=== PATIENT | male | born 1985 | race Caucasian/White ===

== ENCOUNTER → 2017-03-26 | Outpatient (CLI) | payer OTHER ==
--- NOTE | 2017-03-26 17:04 | US ---
EXAMINATION TYPE: US renals and bladder DATE OF EXAM: 03/26/2017 COMPARISON: NONE CLINICAL HISTORY: R31.0 Gross Hematuria. Occasional hematuria x 1 week EXAM MEASUREMENTS: Right Kidney: 9.7 x 4.9 x 4.8 cm Left Kidney: 10.5 x 4.7 x 4.7 cm Right Kidney: no hydro or masses seen Left Kidney: no hydro or masses seen Bladder: wnl Bilateral Jets seen: no There is no evidence for hydronephrosis at this point in time. No nephrolithiasis is seen. No la s are identified. The urinary bladder is anechoic. Bilateral ureteral jets are seen. IMPRESSION: Negative retroperitoneal sonogram exam. No renal mass or obstruction.
== END | disposition home or self-care (01) ==
LOC: RADUSMAIN 16:00
PROVIDERS: ATTEND Internal Medicine
DX: R31.0 Gross hematuria (principal)
CPT/HCPCS: 76770

== ENCOUNTER 2018-04-16 19:52 | Emergency (ER) | payer OTHER ==
[2018-04-16] MEDS ORDERED: SODIUM CHLORIDE 0.9% 500 ML 500 ML IV STA (20:58)
--- NOTE | 2018-04-16 21:28 | ED ---
Chest Pain HPI - General Chief Complaint: Chest Pain Stated Complaint: Chest pain Time Seen by Provider: 04/16/18 20:11 Source: patient Mode of arrival: ambulatory Limitations: no limitations - History of Present Illness Initial Comments: 32-year-old male patient presents to the emergency department today for evaluation of intermittent chest pain and shortness of breath for the last couple of weeks. Patient states that he'll have a vague discomfort to the substernal chest region. Patient states that these episodes come out of nowhere. States that with them he does have some shortness of breath. Denies any nausea or sweats. Denies any dizziness or weakness. Patient states he is also been having a burning sensation to the left lateral chest that is also intermittent. Patient denies any increase in pain with movement or pressure over the area. He denies any current shortness breath, nausea, vomiting. Denies any palpitations or racing heart. Denies any use of street drugs. States that he is a social drinker and drinks at least once a week. Patient states he did see his primary care physician yesterday was diagnosed with acid reflux and started on Prilosec. Patient denies any recent rash, fever, chills, abdominal pain, diarrhea, constipation, back pain, numbness, tingling, dizziness , weakness, hematuria, dysuria, urinary urgency, urinary frequency, headache, visual changes, or any other complaints. - Related Data Home Medications Medication Instructions Recorded Confirmed Omeprazole [PriLOSEC] 20 mg PO DAILY 04/16/18 04/16/18 Allergies Allergy/AdvReac Type Severity Reaction Status Date / Time No Known Allergies Allergy Verified 04/16/18 20:18 Review of Systems ROS Statement: Those systems with pertinent positive or pertinent negative responses have been documented in the HPI. ROS Other: All systems not noted in ROS Statement are negative. EKG Findings - EKG Comments: EKG Findings:: EKG obtained at 2125 shows normal sinus rhythm with a ventricular rate of 75, WV interval 134, QRS duration 86, QT 368, QTC 410. No evidence of ST elevation or depression. Past Medical History Past Medical History: GERD/Reflux History of Any Multi-Drug Resistant Organisms: None Reported Additional Past Surgical History / Comment(s): LEFT KNEE SURGERY Past Psychological History: No Psychological Hx Reported Smoking Status: Never smoker Past Alcohol Use History: Occasional Past Drug Use History: None Reported General Exam Limitations: no limitations General appearance: alert, in no apparent distress, other (This is a well- developed, well-nourished adult male patient in no acute distress. Vital signs upon presentation are temperature 98.6F, pulse 77, respirations 18, blood pressure 134/79, pulse ox 99% on room air.) Eye exam: Present: normal appearance, PERRL, EOMI. Absent: scleral icterus, conjunctival injection, periorbital swelling ENT exam: Present: normal exam, normal oropharynx, mucous membranes moist Respiratory exam: Present: normal lung sounds bilaterally. Absent: respiratory distress, wheezes, rales, rhonchi, stridor Cardiovascular Exam: Present: regular rate, normal rhythm, normal heart sounds. Absent: systolic murmur, diastolic murmur, rubs, gallop, clicks GI/Abdominal exam: Present: soft, normal bowel sounds. Absent: distended, tenderness, guarding, rebound, rigid Neurological exam: Present: alert, oriented X3, CN II-XII intact Psychiatric exam: Present: normal affect, normal mood Skin exam: Present: warm, dry, intact, normal color. Absent: rash Course Vital Signs 04/16/18 19:58 Temperature 98.6 F Pulse Rate 77 Respiratory 18 Rate Blood Pressure 134/79 O2 Sat by Pulse 99 Oximetry Chest Pain [facility]:Two-view x-ray of the chest is obtained. Report was reviewed in its entirety. Impression by Dr. Beckford shows no acute cardio pulmonary process. MDM: 32-year-old male patient presents to the emergency department today for evaluation of intermittent chest pain and shortness of breath 2 weeks. Patient is also reporting left lateral chest burning. Pain is not reproducible with palpation. He is currently pain-free and symptom-free. Labs reviewed and were unremarkable. EKG showed normal sinus rhythm with no ectopy, ST elevation , ST depression. Chest x-ray showed no acute cardio pulmonary process. Did discuss findings and results with the patient. We did discuss outpatient follow -up for possible echocardiogram or stress testing. We also did discuss anxiety and acid reflux as a cause for his symptoms. He is currently taking Prilosec by his primary care physician yesterday, he is urged to continue this medication. He is instructed to follow-up with his primary care physician for recheck as soon as possible. Return parameters were discussed in detail. He verbalizes understanding and agrees with this plan. Disposition Clinical Impression: Chest pain Disposition: HOME SELF-CARE Condition: Good Instructions (If sedation given, give patient instructions): Chest Pain (ED) Additional Instructions: Follow up with your primary care physician for recheck in 1-2 days. Discuss possible echocardiogram or stress testing for further heart evaluation. Discuss possible use of medication for anxiety. Return to the emergency department for any new, worsening, or concerning symptoms. Is patient prescribed a controlled substance at d/c from ED?: No Referrals: Aurelia Rubin MD [Primary Care Provider] - 1-2 days Time of Disposition: 22:34
[2018-04-16 21:34] LABS: Basophils # (A) 0.1 k/uL (0-0.2); Basophils % (A) 1 %; Eosinophils # (A) 0.3 k/uL (0-0.7); Eosinophils % (A) 3 %; HCT 44.4 % (39.0-53.0); HGB 14.3 gm/dL (13.0-17.5); Lymphocytes # (A) 3.1 k/uL (1.0-4.8); Lymphocytes % (A) 34 %; MCH 28.9 pg (25.0-35.0); MCHC 32.3 g/dL (31.0-37.0); MCV 89.5 fL (80.0-100.0); Mean Platelet Volume 8.8; Monocytes # (A) 0.4 k/uL (0-1.0); Monocytes % (A) 5 %; Neutrophils % (A) 55 %; Platelet Count 180 k/uL (150-450); RBC 4.96 m/uL (4.30-5.90); RDW 13.3 % (11.5-15.5); WBC 9.1 k/uL (3.8-10.6)
[2018-04-16 21:43] LABS: INR 0.9 (<1.2); Partial Thromboplastin Time 23.9 sec (22.0-30.0); Prothrombin Time 9.8 sec (9.0-12.0)
--- NOTE | 2018-04-16 21:44 | XR ---
EXAMINATION TYPE: XR chest 2V DATE OF EXAM: 04/16/2018 COMPARISON: NONE HISTORY: Chest pain and left arm pain TECHNIQUE: Frontal and lateral views of the chest are obtained. FINDINGS: There is no focal air space opacity, pleural effusion, or pneumothorax seen. The cardiac silhouette size is within normal limits. The osseous structures are intact. IMPRESSION: No acute cardiopulmonary process.
[2018-04-16 21:45] LABS: ALT 157 U/L (21-72); AST 62 U/L (17-59); Albumin 4.2 g/dL (3.5-5.0); Alkaline Phosphatase 48 U/L (38-126); Anion Gap 9 mmol/L; Blood Urea Nitrogen 16 mg/dL (9-20); Calcium 9.1 mg/dL (8.4-10.2); Carbon Dioxide 25 mmol/L (22-30); Chloride 106 mmol/L (98-107); Glucose 96 mg/dL (74-99); Potassium 4.7 mmol/L (3.5-5.1); Sodium 140 mmol/L (137-145); Total Bilirubin 0.4 mg/dL (0.2-1.3); Total Protein 6.8 g/dL (6.3-8.2)
[2018-04-16 22:00] LABS: Creatine Kinase 112 U/L (55-170)
[2018-04-16 22:12] LABS: Creatine Kinase MB 0.8 ng/mL (0.0-2.4); Troponin I <0.012 ng/mL (0.000-0.034)
[2018-04-16 23:23] VITALS: BP 100/66; PULSE 68; RESP 17; TEMP 97.6
== END 2018-04-16 23:41 | disposition home or self-care (01) ==
LOC: EC 19:52
DX: R07.9 Chest pain, unspecified (principal); R06.02 Shortness of breath; F41.9 Anxiety disorder, unspecified; K21.9 Gastro-esophageal reflux disease without esophagitis; Z79.899 Other long term (current) drug therapy
CPT/HCPCS: 36415; 71046; 80053; 82550; 82553; 83735; 84484; 85025; 85610; 85730; 93005; 96360; 96361; 99285

== ENCOUNTER → 2019-05-17 | Outpatient (CLI) | payer BC ==
--- NOTE | 2019-05-17 09:16 | US ---
EXAMINATION TYPE: US abdomen complete DATE OF EXAM: 05/17/2019 COMPARISON: NONE CLINICAL HISTORY: R10.11 RUQ PAIN. EXAM MEASUREMENTS: Liver Length: 14.4 cm Gallbladder Wall: 0.2 cm CBD: 0.4 cm Spleen: 11.3 cm Right Kidney: 9.5 x 4.8 x 4.7 cm Left Kidney: 9.9 x 4.2 x 4.9 cm *Bowel gas limits exam Pancreas: wnl Liver: wnl Gallbladder: neck fold Evidence for sonographic Marie's sign: no CBD: wnl Spleen: wnl Right Kidney: wnl Left Kidney: wnl Upper IVC: wnl Abd Aorta: wnl The liver is homogenous. The intrahepatic portion of the IVC and proximal abdominal aorta are within normal limits. There is no evidence of cholelithiasis. Common bile duct is unremarkable. The visu alized portions of the pancreas are homogenous. The spleen is unremarkable. Kidneys are symmetric a nd free of hydronephrosis. No renal lesions are seen. IMPRESSION: No sonographic evidence of cholelithiasis nor acute cholecystitis. Unremarkable exam.
== END | disposition home or self-care (01) ==
LOC: RADUSWWP 08:07
PROVIDERS: ATTEND Internal Medicine
DX: R10.11 Right upper quadrant pain (principal)
CPT/HCPCS: 76700

== ENCOUNTER 2020-06-14 09:37 | Emergency (ER) | payer BC ==
[2020-06-14 09:45] VITALS: BP 110/74; PULSE 98; TEMP 98.6
--- NOTE | 2020-06-14 10:10 | XR ---
EXAMINATION TYPE: XR chest 2V DATE OF EXAM: 06/14/2020 COMPARISON: 04/16/2018 HISTORY: 35-year-old male shortness of breath, COVID TECHNIQUE: PA and lateral views FINDINGS: The cardiomediastinal silhouette, aorta, and pulmonary vasculature are within normal limits. Patchy p eripheral opacities on the right. IMPRESSION: Patchy peripheral COVID pneumonia on the right.
[2020-06-14 10:23] VITALS: RESP 20
--- NOTE | 2020-06-14 10:47 | ED ---
URI HPI - General Chief Complaint: Upper Respiratory Infection Stated Complaint: covid+/increased SOB Time Seen by Provider: 06/14/20 10:39 Source: patient, RN notes reviewed Mode of arrival: ambulatory Limitations: no limitations - History of Present Illness Initial Comments: 35-year-old male presents emergency Department chief complaint of covid. Roxana ent states that he has been symptomatic for over a week. Patient states his symptoms he has Covid secondary to his family having it. They states that fevers chills cough congestion shortness of breath. Patient states his been placed on steroids, states he's been using his inhaler nebulizer. Patient denies any significant past medical history. - Related Data Home Medications Medication Instructions Recorded Confirmed Omeprazole [PriLOSEC] 20 mg PO DAILY 04/16/18 04/16/18 Allergies Allergy/AdvReac Type Severity Reaction Status Date / Time No Known Allergies Allergy Verified 06/14/20 09:42 Review of Systems ROS Statement: Those systems with pertinent positive or pertinent negative responses have been documented in the HPI. ROS Other: All systems not noted in ROS Statement are negative. Past Medical History Past Medical History: GERD/Reflux History of Any Multi-Drug Resistant Organisms: None Reported Additional Past Surgical History / Comment(s): LEFT KNEE SURGERY Past Psychological History: No Psychological Hx Reported Smoking Status: Never smoker Past Alcohol Use History: Occasional Past Drug Use History: None Reported General Exam Limitations: no limitations General appearance: alert, in no apparent distress Head exam: Present: atraumatic, normocephalic, normal inspection Eye exam: Present: normal appearance, PERRL, EOMI. Absent: scleral icterus, conjunctival injection, periorbital swelling ENT exam: Present: normal exam, normal oropharynx, mucous membranes moist Neck exam: Present: normal inspection, full ROM. Absent: tenderness, meningismus, lymphadenopathy Respiratory exam: Present: normal lung sounds bilaterally. Absent: respiratory distress, wheezes, rales, rhonchi, stridor Cardiovascular Exam: Present: regular rate, normal rhythm, normal heart sounds. Absent: systolic murmur, diastolic murmur, rubs, gallop, clicks Course Vital Signs 06/14/20 06/14/20 09:42 10:22 Temperature 98.6 F Pulse Rate 98 Respiratory 18 20 Rate Blood Pressure 110/74 O2 Sat by Pulse 93 L Oximetry Medical Decision Making - Medical Decision Making Patient is positive x-ray does not show any significant changes. Patient is oxygen pain while and no signs of distress patient we discharged stable condition. - Lab Data Lab Results 06/14/20 Range/Units 09:48 Coronavirus (PCR) Detected A (Not Detectd) Disposition Clinical Impression: COVID-19 Disposition: HOME SELF-CARE Condition: Stable Instructions (If sedation given, give patient instructions): Coronavirus Disease 2019 (COVID-19) Additional Instructions: Please return to the Emergency Department if symptoms worsen or any other concerns. Is patient prescribed a controlled substance at d/c from ED?: No Referrals: Aurelia Rubin MD [Primary Care Provider] - 1-2 days Time of Disposition: 10:47
== END 2020-06-14 10:49 | disposition home or self-care (01) ==
LOC: EC 09:37
DX: U07.1 COVID-19 (principal); K21.9 Gastro-esophageal reflux disease without esophagitis; Z79.899 Other long term (current) drug therapy
CPT/HCPCS: 71046; 87635; 99283